=== PATIENT | male | born 1980 | race Asian ===

== ENCOUNTER 2019-11-18 14:08 | Emergency (ER) | payer BC ==
[~2019-11-18] VITALS: Ht 167.6 cm; Wt 68.1 kg
[2019-11-18 15:22] VITALS: BP 109/67
--- NOTE | 2019-11-18 16:02 | RAD ---
PA and lateral chest. HISTORY: Cough and fever PA and lateral views were taken of the chest. Patient's taken a poor inspiration on the PA view. There is no pleural effusion. There are no confluent infiltrates. Heart is normal in size. IMPRESSION: 1. No acute infiltrates. Electronically signed by: Srinivas Hooper MD (11/18/2019 3:59 PM) [id number]
--- NOTE | 2019-11-18 16:07 | PHYS DOC ---
Past Medical History Past Medical History: No Pertinent History Past Surgical History: No Surgical History Smoking Status: Never Smoker Alcohol Use: None Adult General Chief Complaint Chief Complaint: FEVER [facility] Patient is a 39 year old male who presents with headache, fever, sore throat, cough, runny nose been ongoing for 2 days. The patient did ibuprofen around 11:00. He has been able to drink fluids at home. 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 Complete ROS were reviewed and found to be within normal limits, except as documented in the HPI Review of Systems Review of Systems Constitutional: Denies fever or chills [] Eyes: Denies change in visual acuity, redness, or eye pain [] HENT: Denies nasal congestion or sore throat [] Respiratory: Denies cough or shortness of breath [] Cardiovascular: No additional information not addressed in HPI [] GI: Denies abdominal pain, nausea, vomiting, bloody stools or diarrhea [] : Denies dysuria or hematuria [] Musculoskeletal: Denies back pain or joint pain [] Integument: Denies rash or skin lesions [] Neurologic: Denies headache, focal weakness or sensory changes [] Endocrine: Denies polyuria or polydipsia [] All other systems were reviewed and found to be within normal limits, except as documented in this note. Physical Exam Physical Exam Constitutional: Well developed, well nourished, no acute distress, non-toxic appearance. [] HENT: Normocephalic, atraumatic, bilateral external ears normal, bilateral tympanic membranes are pearly staples, oropharynx moist, no oral exudates, nose turbinates are inflamed. Eyes: PERRLA, EOMI, conjunctiva normal, no discharge. [] Neck: Normal range of motion, no tenderness, supple, no stridor. [] Cardiovascular:Heart rate regular rhythm, no murmur [] Lungs & Thorax: Bilateral breath sounds clear to auscultation [] Abdomen: Bowel sounds normal, soft, no tenderness, no masses, no pulsatile masses. [] Skin: Warm, dry, no erythema, no rash. [] Neurologic: Alert and oriented X 3, normal motor function, normal sensory function, no focal deficits noted. [] Psychologic: Affect normal, judgement normal, mood normal. [] Current Patient Data Vital Signs Vital Signs Date Time Temp Pulse Resp B/P (MAP) Pulse Ox O2 Delivery O2 Flow Rate FiO2 11/18/19 15:22 98.7 88 16 109/67 (81) 96 Room Air 98.7 EKG EKG [] Radiology/Procedures Radiology/Procedures [][facility] [address] [place] [address] IMAGING REPORT Signed PATIENT: MARSHAL DE PAZ ACCOUNT: [id number] : 1980 LOCATION: ER AGE: 39 SEX: M EXAM STATUS: REG ER ORD. PHYSICIAN: BELKYS TOLEDO APRN REASON: cough, fever PROCEDURE: CHEST PA & LATERAL PA and lateral chest. HISTORY: Cough and fever PA and lateral views were taken of the chest. Patient's taken a poor inspiration on the PA view. There is no pleural effusion. There are no confluent infiltrates. Heart is normal in size. IMPRESSION: 1. No acute infiltrates. Electronically signed by: Yao Hooper MD (11/18/2019 3:59 PM) [id number] DICTATED and SIGNED BY: YAO HOOPER MD DATE: 11/18/19 1559 Course & Med Decision Making Course & Med Decision Making Pertinent Labs and Imaging studies reviewed. (See chart for details) Will get chest x-ray. The patient appears to have the Flu clinically. Discussed with patient the importance of drinking plenty of fluids. I also discussed the importance of rest. It was discussed with the patient that she is contagious and to stay away from others until it has been a week since the start of her symptoms. Discussed with the patient that she can take Zyrtec per label instructions for runny nose. Also discussed the proper control of fever by rotating Tylenol and Ibuprofen at home. Dragon Disclaimer Dragon Disclaimer This electronic medical record was generated, in whole or in part, using a voice recognition dictation system. Departure Departure Impression: Primary Impression: Acute viral syndrome Disposition: HOME, SELF-CARE Condition: STABLE Referrals: NO PCP (PCP) Patient Instructions: Viral Syndrome Additional Instructions: Thank you for visiting [facility]. We appreciate you trusting us with your care. If any additional problems come up don't hesitate to return to visit us. Please follow up with your primary care provider so they can plan additional care if needed and know about the problem that you had. If symptoms worsen come back to the Emergency Department. Any concerning symptoms that start such as chest pain, shortness of air, weakness or numbness on one side of the body, running high fevers or any other concerning symptoms return to the ER. Please fill your medications at any pharmacy and follow the prescription instructions. Please drink plenty of fluids. If unable to keep fluids down please return to ER. Please get Tylenol and Ibuprofen over the counter. Give each medication every 6 hours as directed by the medication labels. In order to utilize the peak of the medications stagger the medications to where the child is getting one of the medications every 3 hours. For example if you give Ibuprofen at 3 PM, you then give Tylenol at 6 PM and Ibuprofen again at 9 PM, and then Tylenol at midnight. Please get Zyrtec over the counter and take per label instructions for runny nose. BELKYS TOLEDO APRN Nov 18, 2019 16:07
== END 2019-11-18 16:13 | disposition home or self-care (01) ==
LOC: ER 14:08
DX: B34.9 Viral infection, unspecified (principal); R50.9 Fever, unspecified; R51 Headache; R09.89 Other specified symptoms and signs involving the circulatory and respiratory systems
CPT/HCPCS: 71046; 99283

== ENCOUNTER 2020-11-12 11:31 | Emergency (ER) | payer BC ==
[~2020-11-12] VITALS: Ht 165.1 cm; Wt 69.0 kg
--- NOTE | 2020-11-12 12:29 | RAD ---
XR CHEST 1V Clinical Indication: Reason: cough COVID+ Comparison: Two-view chest November 18, 2019. Findings: The cardiomediastinal silhouette is normal. Lungs are clear. There is no pneumothorax. No pleural eff usion is appreciated. No acute bone abnormality. IMPRESSION: No acute cardiopulmonary process. Electronically signed by: Sylvester Nash MD (11/12/2020 12:26 PM) [id number]
[2020-11-12 12:36] VITALS: BP 117/77
[2020-11-12] MEDS ORDERED: VENTOLIN HFA18 GM INH (12:36)
[2020-11-12] MEDS ORDERED: BENZ100C PO (12:36)
[2020-11-12] MEDS ORDERED: PRED50TA PO (12:36)
--- NOTE | 2020-11-12 12:37 | PHYS DOC ---
Past Medical History Past Medical History: Other Additional Past Medical Histor: COVID-19/POSITIVE/ Past Surgical History: No Surgical History Smoking Status: Never Smoker Alcohol Use: None General Adult EDM: Chief Complaint: COUGH HPI: HPI: Patient is a 40 year old male presenting to the ED today complaining of cough mild intermittent generalized throbbing headache, and weakness, symptoms began 2 weeks ago. He states he got diagnosed with COVID-19 on October 28, 2020. Denies any fever. Denies any shortness of breath. He is requesting a note for work. Review of Systems: Review of Systems: Constitutional: Reports generalized weakness. Denies fever or chills. [] Eyes: Denies change in visual acuity. [] HENT: Denies nasal congestion or sore throat. [] Respiratory: Reports cough, denies shortness of breath. [] Cardiovascular: Denies chest pain or edema. [] GI: Denies abdominal pain, nausea, vomiting, bloody stools or diarrhea. [] : Denies dysuria. [] Musculoskeletal: Denies back pain or joint pain. [] Integument: Denies rash. [] Neurologic: Reports headache, denies focal weakness or sensory changes. [] Psychiatric: Denies depression or anxiety. [] Heart Score: Risk Factors: Risk Factors: DM, Current or recent (<one month) smoker, HTN, HLP, family history of CAD, obesity. Risk Scores: Score 0 - 3: 2.5% MACE over next 6 weeks - Discharge Home Score 4 - 6: 20.3% MACE over next 6 weeks - Admit for Clinical Observation Score 7 - 10: 72.7% MACE over next 6 weeks - Early Invasive Strategies Allergies: Allergies: Allergies Coded Allergies Type Severity Reaction Last Updated Verified No Known Drug Allergies 11/12/20 No Physical Exam: PE: Constitutional: Well developed, well nourished, no acute distress, non-toxic appearance. [] HENT: Normocephalic, atraumatic, bilateral external ears normal, oropharynx moist, no oral exudates, nose normal. [] Eyes: PERRLA, EOMI, conjunctiva normal, no discharge. [] Neck: Normal range of motion, no tenderness, supple, no stridor. [] Cardiovascular:Heart rate regular rhythm, no murmur [] Lungs & Thorax: Bilateral breath sounds clear to auscultation [] Abdomen: Bowel sounds normal, soft, no tenderness, no masses, no pulsatile masses. [] Skin: Warm, dry, no erythema, no rash. [] Back: No tenderness, no CVA tenderness. [] Extremities: No tenderness, no cyanosis, no clubbing, ROM intact, no edema. [] Neurologic: Alert and oriented X 3, normal motor function, normal sensory function, no focal deficits noted. [] Psychologic: Affect normal, judgement normal, mood normal. [] Current Patient Data: Vital Signs: Vital Signs Date Time Temp Pulse Resp B/P (MAP) Pulse Ox O2 Delivery O2 Flow Rate FiO2 11/12/20 11:33 97.9 84 17 129/83 (98) 99 Room Air 97.9 EKG: EKG: [] Radiology/Procedures: Radiology/Procedures: []PROCEDURE: CHEST AP ONLY XR CHEST 1V Clinical Indication: Reason: cough COVID+ Comparison: Two-view chest November 18, 2019. Findings: The cardiomediastinal silhouette is normal. Lungs are clear. There is no pneumothorax. No pleural effusion is appreciated. No acute bone abnormality. IMPRESSION: No acute cardiopulmonary process. Electronically signed by: Sylvester Brady MD (11/12/2020 12:26 PM) [id number] DICTATED and SIGNED BY: SYLVESTER BRADY MD DATE: 11/12/20 [id number] 0 Course & Med Decision Making: Course & Med Decision Making Pertinent Labs and Imaging studies reviewed. (See chart for details) This is a 40-year-old male patient presenting to the ED today complaining of cough generalized weakness and a headache, symptoms for 2 weeks. Patient was diagnosed with COVID-19 on October 28, 2020. Chest x-ray interpreted by radiologist as negative for any acute findings. O2 sats above 99% on room air. Patient is afebrile, blood pressure is normal. Discharge to home. Provided supportive care medications including prednisone, Tessalon Perles and a bit inhaler. Provided a note for work. 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 Departure Departure Impression: Primary Impression: Lab test positive for detection of COVID-19 virus Additional Impressions: Cough Weakness Headache Qualified Codes: R51.9 - Headache, unspecified Disposition: 01 DC HOME SELF CARE/HOMELESS Condition: STABLE Referrals: NO PCP (PCP) Follow-up with your doctor as needed Patient Instructions: Cough, Adult, [id number], Viral Syndrome Additional Instructions: You were evaluated in the emergency room for COVID-19 symptoms. Your chest x- ray is negative for any acute findings. We provided you a note for work. Take the prescribed medications as ordered. Follow-up with your doctor in 1 to 2 weeks Scripts Albuterol Sulfate (VENTOLIN HFA INHALER) 18 Gm Hfa.aer.ad 1 PUFF INH Q4HRS for FOR ASTHMA, #1 EACH 0 Refills Prov: CHARLIE MORGAN APRN 11/12/20 Benzonatate (TESSALON PERLE) 100 Mg Capsule 1 CAP PO TID, #21 CAP Prov: CHARLIE MORGAN APRN 11/12/20 Prednisone (PREDNISONE) 50 Mg Tablet 1 TAB PO DAILY, #5 TAB Prov: CHARLIE MORGAN APRN 11/12/20 CHARLIE MORGAN APRN Nov 12, 2020 12:37
== END 2020-11-12 13:01 | disposition home or self-care (01) ==
LOC: ER 11:31
DX: R05 Cough (principal); R51.9 Headache, unspecified; R53.1 Weakness
CPT/HCPCS: 71045; 99283

== ENCOUNTER 2022-02-16 11:30 | Emergency (ER) | payer BC ==
[~2022-02-16] VITALS: Ht 162.6 cm; Wt 64.3 kg
[~2022-02-16 11:30] MED LIST: BENZ100C PO; PRED50TA PO; VENTOLIN HFA18 GM INH
[2022-02-16] MEDS ORDERED: KETOROLAC 30 MG/ML VIAL. IVP ONE (12:15)
[2022-02-16] MEDS ORDERED: IV NORMAL SALINE 1000ML BAG 1,000 ML IV ONE (12:15)
[2022-02-16 12:32] LABS: INFLUENZA A PATIENT NEGATIVE (NEGATIVE); INFLUENZA B PATIENT NEGATIVE (NEGATIVE)
--- NOTE | 2022-02-16 12:32 | PHYS DOC ---
Past Medical History Past Medical History: Other Additional Past Medical Histor: COVID-19/POSITIVE/ Past Surgical History: No Surgical History Smoking Status: Never Smoker Alcohol Use: None General Adult EDM: Chief Complaint: FLU SYMPTOM HPI: HPI: Patient is a 41-year-old male who presents today with body aches. Patient is non-Yemeni speaking and all information obtained during the HPI and review of systems the interpretive services were used. Patient states his symptoms of body aches and overall fatigue started on Monday and have progressively gotten worse, he states that he called into work yesterday and he did not go to work today because he feels horrible. Patient states he has had chills but no fever he denies any cough, ear pain, nasal congestion, sore throat, or shortness of breath. Patient states he has been vaccinated for influenza and COVID. When asked if this felt like his COVID infection last year and he said no he said he feels completely different. He denies anybody else in his household being sick. Patient also states he has had no nausea or vomiting or diarrhea as well. Review of Systems: Review of Systems: Constitutional: chills. [] Eyes: Denies change in visual acuity. [] HENT: Denies nasal congestion or sore throat. [] Respiratory: Denies cough or shortness of breath. [] Cardiovascular: Denies chest pain or edema. [] GI: Denies abdominal pain, nausea, vomiting, bloody stools or diarrhea. [] : Denies dysuria. [] Musculoskeletal: Body aches Integument: Denies rash. [] Neurologic: Denies headache, focal weakness or sensory changes. [] Endocrine: Denies polyuria or polydipsia. [] Lymphatic: Denies swollen glands. [] Psychiatric: Denies depression or anxiety. [] Heart Score: C/O Chest Pain: No Risk Factors: Risk Factors: DM, Current or recent (<one month) smoker, HTN, HLP, family history of CAD, obesity. Risk Scores: Score 0 - 3: 2.5% MACE over next 6 weeks - Discharge Home Score 4 - 6: 20.3% MACE over next 6 weeks - Admit for Clinical Observation Score 7 - 10: 72.7% MACE over next 6 weeks - Early Invasive Strategies Current Medications: Current Medications Medications (Trade) Dose Ordered Sig/Filipe Start Time Stop Time Status Last Admin Dose Admin Ketorolac Tromethamine (Toradol 30mg Vial) 30 mg 1X ONCE 02/16/22 12:15 02/16/22 12:16 DC 02/16/22 12:18 30 MG Sodium Chloride 1,000 ml @ 999 mls/hr 1X ONCE 02/16/22 12:15 02/16/22 13:15 02/16/22 12:15 999 MLS/HR Allergies: Allergies: Allergies Coded Allergies Type Severity Reaction Last Updated Verified No Known Drug Allergies 11/12/20 No Physical Exam: PE: Constitutional: Well developed, well nourished, no acute distress, non-toxic appearance. [] HENT: Normocephalic, atraumatic, bilateral external ears normal, oropharynx moist, no oral exudates, nose normal. [] Eyes: PERRLA, EOMI, conjunctiva normal, no discharge. [] Neck: Normal range of motion, no tenderness, supple, no stridor. [] Cardiovascular:Heart rate regular rhythm, no murmur [] Lungs & Thorax: Bilateral breath sounds clear to auscultation [] Abdomen: Bowel sounds normal, soft, no tenderness, no masses, no pulsatile masses. [] Skin: Warm, dry, no erythema, no rash. [] Back: No tenderness, no CVA tenderness. [] Extremities: No tenderness, no cyanosis, no clubbing, ROM intact, no edema. [] Neurologic: Alert and oriented X 3, normal motor function, normal sensory function, no focal deficits noted. [] Psychologic: Affect normal, judgement normal, mood normal. [] Current Patient Data: Vital Signs: Vital Signs Date Time Temp Pulse Resp B/P (MAP) Pulse Ox O2 Delivery O2 Flow Rate FiO2 02/16/22 12:00 117 16 131/90 (104) 96 Room Air 02/16/22 11:40 97.9 97.9 EKG: EKG: [] Radiology/Procedures: Radiology/Procedures: EKG done at [address] Laughlin at 1150 shows sinus tachycardia at a rate of 109 with no ectopy at a [place] interval of 134 ms with a QTC 416 ms no STEMI [] Course & Med Decision Making: Course & Med Decision Making Pertinent Labs and Imaging studies reviewed. (See chart for details) 1305 patient states he feels much better after 700 mL of normal saline and 30 of Toradol, HR is 103 he is requesting a work note for today and tomorrow, I did instruct him to increase his by mouth fluids take Tylenol and ibuprofen as needed for pain and to return here to the emergency department should his symptoms not get any better after 48 hours. Patient is to follow-up with his primary care physician on his discharge instructions for any further medical or one of the listed clinics management. Rich Disclaimer: Rich Disclaimer: This electronic medical record was generated, in whole or in part, using a voice recognition dictation system. Departure Departure Impression: Primary Impression: Acute viral syndrome Disposition: HOME / SELF CARE / HOMELESS Condition: STABLE Referrals: NO PCP (PCP) Patient Instructions: Viral Syndrome Additional Instructions: Tylenol and/or ibuprofen as needed for pain per label directed Increase by mouth fluids to 1 to 2 L daily Return here to the emergency department should your symptoms not get any better in 48 hours, you have chest pain, fever that is not relieved with Tylenol or ibuprofen, or have a decrease in mental status Follow-up with your primary care physician or one of the listed clinics below for further evaluation and medical management. [facility] [address] [place] [address] [facility] [address] [place] [address] [facility] [address] [facility] [place] [address] [facility] [address] [place] [address] [facility] [address] [place] [address] [address] [address] [place] [address] [address] [address] [place] [address] [facility] [address] [place] [address] [facility] [address] [place] [address] [facility] [address] [place] [address] BRETT KENDALL APRN February 16, 2022 12:32
[2022-02-16 13:00] VITALS: BP 123/88
--- NOTE | 2022-02-16 13:10 | RAD ---
PA and lateral chest. HISTORY: Body aches PA and lateral views were taken of the chest. There is blunting of the right costophrenic angle possi savage a trace of pleural effusion. There are no acute infiltrates. There is slight scoliosis. Heart is normal in size. There is no effusion. IMPRESSION: 1. Trace of pleural effusion on the right. 2. No acute infiltrates. Electronically signed by: Srinivas Hooper MD (02/16/2022 1:07 PM) [id number]
== END 2022-02-16 13:33 | disposition home or self-care (01) ==
LOC: ER 11:30
DX: B34.9 Viral infection, unspecified (principal); Z20.822 Contact with and (suspected) exposure to COVID-19
CPT/HCPCS: 71046; 87428; 96361; 96374; 99284; J1885; J7030